=== PATIENT | female | born 2005 | race Two or more races ===

== ENCOUNTER 2024-08-23 22:32 | Inpatient (IN) | payer MEDICAID, SELFPAY ==
[2024-08-23 22:49] VITALS: BP 119/79; PULSE 144; RESP 16; TEMP 36.8
[2024-08-23 22:51] VITALS: BMI 33.7
[2024-08-23 23:01] VITALS: BP 120/77; PULSE 112
--- NOTE | 2024-08-23 23:07 | EKG_ITS ---
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
[2024-08-23 23:16] VITALS: PULSE 132; RESP 16; O2SAT 100
[2024-08-23 23:31] VITALS: PULSE 114; O2SAT 99
[2024-08-23 23:32] VITALS: BP 119/69; PULSE 111
[2024-08-23 23:44] LABS: Basophils % (Auto) 0 % (0-2.5); Eosinophils # (Auto) 0.1 Thou/mm3 (0.0-0.5); Eosinophils % (Auto) 1 % (0-10); Hemoglobin 8.5 g/dL (12.0-16.0); Immature Granulocytes % (Auto) 1 % (0-0); Immature Granulocytes Auto 0.05 Thou/mm3 (0.00-0.00); Lymphocytes # (Auto) 1.5 Thou/mm3 (1.0-5.0); Lymphocytes % (Auto) 15 % (10-50); Mean Corpuscular HGB Conc 31.5 g/dl (31.0-37.0); Mean Corpuscular Hemoglobin 22.5 pg (25.0-35.0); Mean Corpuscular Volume 71 fL (80-100); Monocytes # (Auto) 0.6 Thou/mm3 (0.0-0.8); Monocytes % (Auto) 6 % (0-12); Neutrophils # (Auto) 7.4 Thou/mm3 (1.8-7.7); Neutrophils % (Auto) 77 % (37-80); Nucleated Red Blood Cell # 0.06 Thou/mm3 (0.00-0.00); Nucleated Red Blood Cell % 1 /100 WBC (0); Platelet Count 401 Thou/mm3 (140-440); RDW Standard Deviation 43.9 fL (36.4-46.3); Red Blood Count 3.78 Miln/mm3 (4.00-5.20); White Blood Count 9.6 Thou/mm3 (4.5-11.0)
[2024-08-23] MEDS: RINGERS LACTATED 1000 ML 1,000 ML 100 ML IV (23:45)
[2024-08-23 23:46] VITALS: PULSE 98; O2SAT 100
[2024-08-23] MEDS: MISOPROSTOL 50 mCg TABLET PO (23:56)
[2024-08-24] VITALS (147 sets, daily range): BP systolic 91–155; BP diastolic 51–84; PULSE 74–143; RESP 14–27; TEMP 36.4–38.7; O2SAT 82–100; BMI 33.7
[2024-08-24 00:55] LABS: Amphetamine/Metham Scrn,Ur OB Negative (Negative); Benzoylecgonine Screen, Ur OB Negative (Negative); Opiate Screen,Urine OB Negative (Negative); THC Screen,Urine OB Negative (Negative)
[2024-08-24 02:07] LABS: Syphilis Nonreactive (Nonreactive)
[2024-08-24] MEDS: OXYTOCIN in NS 30 units 30 UNIT/500 ML BAG IV (05:42)
[2024-08-24] MEDS: RINGERS LACTATED 1000 ML 1,000 ML 100 ML IV ×4 (07:06→23:34)
--- NOTE | 2024-08-24 07:46 | PD.LDHP ---
Documentation for date of: 08/24/24 OB Labor/Induct. HPI History of Present Illness Chief complaint: induction : 1 Para: 0 Term pregnancies: 0 pregnancies: 0 Living children: 0 History of Abortions: Spontaneous and Elective: 0 History of Vaginal deliveries: 0 History of sections: No History of : No Date of last menstrual period: 05/12/24 EMBER: 08/22/24 Gestational Age (weeks): 40 Gestational Age (days): 1 Gestational age based on last menstrual period: 14 Indication for induction: post dates History of present illness: 18-year-old 1 para 0 admit to labor and delivery at 40 weeks 1 day for induction of labor. Last period November 16, 2023. Estimated due date August 22, 2024. First visit 18 weeks. Patient denies social habits. Denies surgery. Denies chronic illness. Patient had her first anatomy scan in April and showed normal anatomy and growth. And her dates and sono dates are accurate. Patient is B+, antibody screen negative, RPR nonreactive, rubella immune, hepatitis B negative, hepatitis C negative, HIV negative, GC and Chlamydia were negative. Patient had normal AFP and NIPT. Carrier screens negative. 1 hour GTT normal. GBS negative. History of Present Dating criteria: LMP confirmed by 1st trimester US Adequate Care: Yes (12 weeks in [place] then tx to [place] at 17wk) Ultrasounds: normal 1st trimester US and normal mid trimester US Obstetrical complications: none Medical complications: none Labs Labs: Negative: Hepatitis B, HIV, Chlamydia, Gonorrhea and Group Beta Strep Review of Systems Review of Systems Systems Reviewed: All systems reviewed, normal except as documented Past Medical History Surgical History SURGICAL: Negative Section Meds Home Medications and Allergies Home Medications ?Medication ?Instructions ?Recorded ?Confirmed ?Type vitamins-iron fumarate 65 1 tab PO QDAY 06/06/24 08/23/24 History mg iron-folic acid 1 mg tablet Allergies Allergy/AdvReac Type Severity Reaction Status Date / Time No Known Allergies Allergy Verified 08/24/24 00:04 OB Exam Physical Exam Vital signs: Temp Pulse Resp BP Pulse Ox 97.5 F 87 16 126/69 100 08/24/24 06:50 08/24/24 07:34 08/24/24 06:50 08/24/24 07:34 08/24/24 07:40 Narrative: Alert and oriented. Normal heart rate and rhythm. Lungs clear no wheezes. Gravid abdomen. Gynecoid pelvis. Estimated weight 7 and half pounds. Vaginal exam on admission was 60%, 3, -3. Vertex. Bag water intact. heart category 1 with accelerations and moderate variability occasional irregular Detailed Labor and Delivery Exam Dilation (cm): 3 Effacement (%): 60 Cervix position: mid station: -3 Consistency: soft Presentation: Vertex Cervical ripeness score: 6 Membranes: intact Baseline heart rate: 135 monitor accelerations: 15x15 monitor decelerations: None FDC variability: Moderate (11-25) Contraction frequency (min): irregular Contraction duration (sec): moderate Tachysystole: No Contraction intensity: Mild OB Results Labs 08/23/24 23:15 Labs: Short CBC 08/23/24 Range/Units 23:15 WBC 9.6 (4.5-11.0) Thou/mm3 Hgb 8.5 L (12.0-16.0) g/dL Hct 27.0 L (36.0-46.0) % Plt Count 401 (140-440) Thou/mm3 Impressions Impression: induction OB Assessment & Plan Assessment and Plan (1) Normal labor and delivery: Status: Acute Additional Plan Induction method: per misoprostol protocol (pitocin to follow) Plan: induction, anticipate NVD and consult MD gaytan
--- NOTE | 2024-08-24 07:51 | PD.LDPN ---
Documentation for date of: 08/24/24 OB Labor Progress Note Pain Control Pain control: epidural Pelvic Exam Dilation (cm): 3 Effacement (%): 60 station: -3 Contractions Monitor mode: External Contraction frequency: irregular Contraction intensity: Mild Status status: Category l Assessment and Plan Pitocin rate (mU/min): 3 Assessment: induction ongoing Plan OB labor note: continuous present management CNM Management MD Consulted (describe details below): Yes
--- NOTE | 2024-08-24 21:39 | PD.LDPN ---
Documentation for date of: 08/24/24 OB Labor Progress Note Pain Control Pain control: epidural Pelvic Exam Dilation (cm): 10 Effacement (%): 100 station: 0 Amniotic membrane status: Ruptured Contractions Monitor mode: External Contraction frequency: irregular Contraction intensity: Mild Status status: Category l Assessment and Plan Pitocin rate (mU/min): 10 Assessment: active labor Plan OB labor note: CNM Management MD Consulted (describe details below): Yes
[2024-08-24] MEDS: FAMOTIDINE INJ 10 MG/ML VIAL 2 ML 20 MG IV (21:45)
[2024-08-24] MEDS: ceFAZolin/D5W 2 GM IV 2 GM/100 ML BAG IV (21:46)
[2024-08-24] MEDS: METOCLOPRAMIDE INJ 5 MG/ML VIAL 2 ML 10 MG IVP (22:03)
--- NOTE | 2024-08-24 22:48 | PD.GYNPROC ---
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 Identity was confirmed by double identifiers and she was placed on the operating table. Spinal anesthesia was administered and she was positioned in the supine position. The abdomen and perineum were prepped in the usual sterile fashion and a Goodman catheter was placed to continuous drainage. Sterile drapes were applied. The incision site was tested for adequacy of anesthesia. A Pfannenstiel skin incision was made with a scalpel and carried to the subcutaneous fat up to the rectus fascia. The rectus fascia was incised on either side of the midline and the incisions were extended bilaterally. The fascia was gently dissected off the ventral surface of the rectus muscle both superiorly and inferiorly. The rectus bellies were gently in the midline and the peritoneum was identified and entered bluntly using the surgeon's finger. The peritoneal opening was now stretched to create an adequate opening for access to the uterus. Serafin O-ring retractor was placed for adequate visualization. The anterior surface of the uterus was palpated. The bladder reflection was identified and a Дмитрий Quiros low transverse uterine incision was made in the lower uterine segment taking care to avoid the bladder. Uterine entry was accomplished bluntly and the opening was stretched to create adequate room. The amniotic membranes were now ruptured and clear amniotic fluid was released. The fetus was noted to be in the vertex position. The head was gently elevated out of the maternal pelvis and the rest of the shoulders and body were delivered by gentle fundal pressure. Umbilical cord was doubly clamped, divided and the was handed over to the waiting team. Cord gas samples were obtained. The placenta was delivered by gentle traction on the umbilical cord. The interior of the uterus was now thoroughly cleaned of all blood and debris and membranes. The hysterotomy angles were grasped by a pair of Allis clamps and the hysterotomy was closed using 1 Monocryl suture in 2 layers. The first layer was used to approximate the muscle in a running locked fashion, the second layer was used to approximate the thickness of the myometrium and uterine serosa in an imbricated manner. Once the repair was completed the hysterotomy was inspected and noted to be adequately hemostatic. The hysterotomy was once again inspected and hemostasis was noted to be satisfactory. The Serafin retractor was now removed. The peritoneal edges were re approximated. The rectus muscles were re approximated. The rectus fascia was now repaired using 0 Vicryl suture in a running fashion. The subcutaneous layer was now copiously irrigated using warm normal saline. All bleeding points were cauterized using the Bovie. The subcutaneous fat was closed using 3-0 Vicryl. The skin was closed using 4-0 Monocryl in a subcuticular fashion. The skin was cleaned and a sterile dressing was applied. The patient was now undraped, the abdomen and back were thoroughly cleaned and she was not transferred to the recovery room in a stable and awake condition. The patient tolerated the entire procedure well. No complications were encountered. All instrument, sponge and lap counts were correct x2. Estimated blood loss (ml): 650 Complications: none Surgical staff Operation Date: 08/24/24 22:15 <No data on this case meets the specified criteria> Diagnosis Discharge Diagnosis (1) Failure of descent in labor, delivered, current hospitalization: Status: Acute (2) delivery delivered: Status: Acute Problem List Completed Was Problem List Reviewed/Reconciled?: Yes
--- NOTE | 2024-08-24 22:50 | PD.LDDELS ---
Data (Ellis) Data Hx Section: No : 1 Para: 0 Term: 0 : 0 : 0 Delivery Data (Ellis) Labor Data Stimulated/Augmented: Yes Induction: Yes Method: Oxytocin ROM Date: 08/24/24 ROM Time: 14:10 Rupture Type: SROM Amniotic Fluid: Clear Delivery Data Labor Onset Stage 1 Date: 08/24/24 Labor Onset Stage 1 Time: 06:30 Labor Onset Stage 2 Date: 08/24/24 Labor Onset Stage 2 Time: 19:09 Delivery Date: 08/24/24 Delivery Time: 22:30 Placenta Delivery Date: 08/24/24 Placenta Delivery Time: 22:31 Delivered by: Matheus Stevens Delivery nurse: Valentino Rosenberg Other staff at delivery: Nursery Nurse Other staff at delivery: Glenys Wolff Delivery Method Delivery: Delivery Type: Primary Anesthesia Type Primary Anesthesia: Epidural Secondary Anesthesia: Spinal Placenta Placenta Delivery: Manual Umbilical Cord Nuchal Cord: x1 Data (Ellis) [place] Data Infant Gender: Female Weight Grams: 3385 1 Minute Total: 9 5 Minute Total: 9
[2024-08-24] MEDS: ACETAMINOPHEN IVPB 1,000 MG/100 ML VIAL 250 MG IV (23:45)
[2024-08-24] MEDS: OXYTOCIN in NS 20 units 20 UNIT/1,000 ML BAG 125 UNIT IV (23:56)
--- NOTE | 2024-08-24 23:59 | XR_ITS ---
Examination: AP chest single view Technique one AP portable upright chest single view Exam date and time: August 25, 2024 0011 hrs. Indications: Fever today. Findings: Early left perihilar left basilar pneumonia Normal heart size The right lung is clear The osseous structures are intact Impression: Early left perihilar left basilar pneumonia
[2024-08-25] VITALS (21 sets, daily range): BP systolic 98–133; BP diastolic 55–84; PULSE 84–109; RESP 16–23; TEMP 36.6–37.6; O2SAT 96–100
--- NOTE | 2024-08-25 | EKG_ITS ---
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
[2024-08-25] MEDS: KETOROLAC INJ 30 MG/ML VIAL IVP ×3 (00:18→15:04)
[2024-08-25] MEDS: PIPER/TAZO INJ 3.375 GM in SODIUM CHLORIDE 0.9% (P) 50 ML IV ×2 (00:37→05:34)
[2024-08-25 01:07] LABS: Lactate (Lactic Acid) 2.6 mMol/L (0.4-2.0)
--- NOTE | 2024-08-25 03:19 | PC.NURSE ---
08/25/2024@ 0318 Spoke with pharmacy informatics specialistRasheeda england, who verified with pharmacist regarding x1 dose of motrin ordered by Dr. Stevens. Pharmacist verified Motrin order and recommended to administer toradol 6 hours from last administration of Motrin. primary RN will pass on to next shift.
[2024-08-25 04:05] LABS: Reflex Lactate? Y
[2024-08-25 05:19] LABS: Lactic Acid, 3 HR 1.4 mMol/L (0.4-2.0)
[2024-08-25] MEDS: ACETAMINOPHEN IVPB 1,000 MG/100 ML VIAL 250 MG IV ×2 (05:35→13:23)
[2024-08-25 05:47] LABS: Basophils % (Auto) 0 % (0-2.5); Eosinophils % (Auto) 0 % (0-10); Immature Granulocytes % (Auto) 1 % (0-0); Immature Granulocytes Auto 0.07 Thou/mm3 (0.00-0.00); Lymphocytes # (Auto) 1.2 Thou/mm3 (1.0-5.0); Lymphocytes % (Auto) 9 % (10-50); Mean Corpuscular HGB Conc 31.3 g/dl (31.0-37.0); Mean Corpuscular Hemoglobin 22.2 pg (25.0-35.0); Mean Corpuscular Volume 71 fL (80-100); Monocytes % (Auto) 7 % (0-12); Neutrophils # (Auto) 11.4 Thou/mm3 (1.8-7.7); Neutrophils % (Auto) 83 % (37-80); Nucleated Red Blood Cell # 0.02 Thou/mm3 (0.00-0.00); Nucleated Red Blood Cell % 0 /100 WBC (0); Platelet Count 281 Thou/mm3 (140-440); RDW Standard Deviation 44.4 fL (36.4-46.3); Red Blood Count 3.25 Miln/mm3 (4.00-5.20); White Blood Count 13.7 Thou/mm3 (4.5-11.0)
[2024-08-25] MEDS: OXYTOCIN in NS 20 units 20 UNIT/1,000 ML BAG 125 UNIT IV (05:50)
[2024-08-25 05:52] LABS: Hemoglobin 7.2 g/dL (12.0-16.0)
[2024-08-25] MEDS: DOCUSATE SOD 100 MG CAPSULE PO (08:32)
--- NOTE | 2024-08-25 10:18 | PC.NURSE ---
08/25/2024 @ [address] HIRSCH AT BEDSIDE, REPORT GIVEN TO PROVIDER, C-XRAY RESULTS AND LAB RESULTS REVIEWED. BLOOD CULTURES AND URINE CULTURES STILL PENDING, 1ST UNIT PRBC RUNNING 2ND UNITOF PRBC PENDING, PATIENT IS ON ZOSYN Q8H, URINE OUTPUT AT BEGINNING OF SHIFT 50CC, AND FUNDUS FIRM MIDLINE WITH SCANT BLEEDING. ORDERS RECEIVED FROM DR. HIRSCH TO DRAW CBC 4 HOURS AFTER 2ND UNIT OF PRBC IS FINISHED.
--- NOTE | 2024-08-25 10:37 | PD.LDPPPRG ---
Subjective Subjective Interval history: Patient is seen at the bedside doing well denies any fever, pain, vaginal bleeding, nausea, vomiting. Currently receiving her first unit of packed RBCs. Urine output has been on the lower side. Exam Vital Signs Temp Pulse Resp BP Pulse Ox O2 Del Method 98.4 F 100 18 105/69 99 Room Air 08/25/24 09:57 08/25/24 09:57 08/25/24 09:57 08/25/24 09:57 08/25/24 09:57 08/25/24 09:24 Constitutional Constitutional: no acute distress Routine HEENT Exam Head: Present normocephalic and atraumatic Eye: Present EOMI and PERRL ENT: Present mucous membranes moist Routine Neck Exam Neck: Present supple and trachea midline Routine Respiratory Exam Respiratory: Present chest non-tender, lungs clear, normal breath sounds and no resp distress Routine Cardiovascular Exam Cardiovascular: Present RRR Routine Abdominal Exam Abdominal: Present soft and normoactive bowel sounds Routine Extremities Exam Extremities: Present full ROM Routine Skin Exam Skin: Present intact, dry and warm Routine Neurological Exam Neurological: Present alert, oriented X3 and CN II-XII intact Routine Psychiatric Exam Psychiatric: Present normal affect and normal thought process Objective Labs 08/25/24 04:50 Labs: Laboratory Results - last 24 hr 08/23/24 08/25/24 08/25/24 23:15 00:27 04:50 WBC 13.7 H D RBC 3.25 L Hgb 7.2 L Hct 23.0 L MCV 71 L MCH 22.2 L MCHC 31.3 RDW Std Deviation 44.4 Plt Count 281 D Neut % (Auto) 83 H Lymph % (Auto) 9 L [place] % (Auto) 7 Eos % (Auto) 0 Baso % (Auto) 0 Neut # (Auto) 11.4 H Lymph # (Auto) 1.2 [place] # (Auto) 1.0 H Eos # (Auto) 0.0 Baso # (Auto) 0.0 Immature Gran # (Auto) 0.07 H Absolute Nucleated RBC 0.02 H Immature Gran % 1 H Nucleated RBC % 0 Lactic Acid 2.6 H 1.4 Blood Type B Positive Antibody Screen NEGATIVE Crossmatch See Detail Blood Bank Wristband ID Yes Assessment & Plan Problem List (1) Failure of descent in labor, delivered, current hospitalization: Status: Acute (2) delivery delivered: Status: Acute Assessment Comment Assessment comment: 18-year-old s/p , postop day 1 Hemoglobin 7.2, 1 unit packed RBC transfused Vital signs otherwise stable On Zosyn for bibasilar pneumonia Afebrile since antibiotic began Plan Comment Plan Comment: Continue postop care Anticipate discharge after 24 hours afebrile status, possibly tomorrow Time Spent With Patient Time: Total time spent is greater than 50% in coordination of care (as documented) at patient's floor/unit and/or counseling patient:
[2024-08-25] MEDS: PIPER/TAZO 3.375 GM 50 ML IV ×2 (14:49→22:04)
[2024-08-25 20:38] LABS: Basophils % (Auto) 0 % (0-2.5); Eosinophils # (Auto) 0.1 Thou/mm3 (0.0-0.5); Eosinophils % (Auto) 1 % (0-10); Hemoglobin 9.6 g/dL (12.0-16.0); Immature Granulocytes % (Auto) 1 % (0-0); Immature Granulocytes Auto 0.08 Thou/mm3 (0.00-0.00); Lymphocytes # (Auto) 1.3 Thou/mm3 (1.0-5.0); Lymphocytes % (Auto) 9 % (10-50); Mean Corpuscular HGB Conc 33.1 g/dl (31.0-37.0); Mean Corpuscular Hemoglobin 24.3 pg (25.0-35.0); Mean Corpuscular Volume 73 fL (80-100); Monocytes # (Auto) 0.8 Thou/mm3 (0.0-0.8); Monocytes % (Auto) 6 % (0-12); Neutrophils # (Auto) 12.2 Thou/mm3 (1.8-7.7); Neutrophils % (Auto) 84 % (37-80); Nucleated Red Blood Cell # 0.03 Thou/mm3 (0.00-0.00); Nucleated Red Blood Cell % 0 /100 WBC (0); Platelet Count 257 Thou/mm3 (140-440); RDW Standard Deviation 44.7 fL (36.4-46.3); Red Blood Count 3.95 Miln/mm3 (4.00-5.20); White Blood Count 14.5 Thou/mm3 (4.5-11.0)
[2024-08-26] MEDS: ACETAMINOPHEN 325 MG TABLET 650 MG PO (02:05)
[2024-08-26 04:00] VITALS: BP 95/67; PULSE 98; RESP 17; TEMP 36.3; O2SAT 98
[2024-08-26] MEDS: PIPER/TAZO 3.375 GM 50 ML IV (05:23)
[2024-08-26 08:00] VITALS: BP 115/84; PULSE 79; RESP 18; TEMP 36.8; O2SAT 99
[2024-08-26] MEDS: SIMETHICONE 80 MG CHEW PO (08:05)
[2024-08-26] MEDS: DOCUSATE SOD 100 MG CAPSULE PO (08:05)
[2024-08-26] MEDS: IBUPROFEN TAB 400 MG TABLET 800 MG PO ×2 (11:03→19:46)
[2024-08-26] MEDS: Milk Of Magnesia Susp 30 ML UDC PO (11:25)
[2024-08-26 12:20] VITALS: BP 110/72; PULSE 86; RESP 17; TEMP 36.6; O2SAT 99
--- NOTE | 2024-08-26 13:11 | PC.CC ---
TECHNICAL PROFESSIONAL, Amanda, met with patient [id number] to do initial assessment due to being late to care. TECHNICAL PROFESSIONAL introduced herself, role in the agency, reason for visit, and discussed limits of confidentiality. Patient appeared alert and oriented to self, time, place, and situation. Patient appears stated age. Patient made good eye contact. Patient?s attitude appeared pleasant and cooperative. Patient?s behavior and mood appears ordinary. No signs of delusions or hallucinations. This 18-year-old, , female presented to the hospital to deliver her daughter, Lia. Reinoso. Patient reported that she resides at home with her significant other Roger Abel and a brother and sister. She reports her family is part of her support system. She reports being independent with all her ADLs, no DME use. Patient reported that she is in the process of receiving WIC. Patient denies any history or current domestic violence or child welfare services involvement. Patient reported she was late to care as she recently moved here from [place]. The patient reported she received care at 4 weeks gestation in [place]. The patient stated she did not think about bringing her paper work from the doctor she was being followed by in [place]. Patient reports she has all needed supplies for the baby upon discharge. Patient reports she will be formula and . SW provided psychoeducation regarding baby blues and Post- Depression, as well as counseling groups [facility]. SW provided community resources: Warm Line and Crisis Line.
--- NOTE | 2024-08-26 16:20 | PD.LDPPPRG ---
Subjective Subjective Interval history: Patient has been feeling fine. Denies any fever , nausea vomiting.Has been having gas pain , cannot pass gas yet. Exam Vital Signs Temp Pulse Resp BP Pulse Ox O2 Del Method 97.9 F 86 17 110/72 99 Room Air 08/26/24 12:20 08/26/24 12:20 08/26/24 12:20 08/26/24 12:20 08/26/24 12:20 08/26/24 12:20 Constitutional Constitutional: no acute distress Routine HEENT Exam Head: Present normocephalic and atraumatic Eye: Present EOMI and PERRL ENT: Present mucous membranes moist Routine Neck Exam Neck: Present supple and trachea midline Routine Respiratory Exam Respiratory: Present chest non-tender, lungs clear, normal breath sounds and no resp distress Routine Cardiovascular Exam Cardiovascular: Present RRR Routine Abdominal Exam Abdominal: Present soft and normoactive bowel sounds Routine Extremities Exam Extremities: Present full ROM Routine Skin Exam Skin: Present intact, dry and warm Routine Neurological Exam Neurological: Present alert, oriented X3 and CN II-XII intact Routine Psychiatric Exam Psychiatric: Present normal affect and normal thought process Objective Labs 08/25/24 20:26 Labs: Laboratory Results - last 24 hr 08/25/24 20:26 WBC 14.5 H RBC 3.95 L Hgb 9.6 L D Hct 29.0 L MCV 73 L MCH 24.3 L MCHC 33.1 RDW Std Deviation 44.7 Plt Count 257 Neut % (Auto) 84 H Lymph % (Auto) 9 L [place] % (Auto) 6 Eos % (Auto) 1 Baso % (Auto) 0 Neut # (Auto) 12.2 H Lymph # (Auto) 1.3 [place] # (Auto) 0.8 Eos # (Auto) 0.1 Baso # (Auto) 0.0 Immature Gran # (Auto) 0.08 H Absolute Nucleated RBC 0.03 H Immature Gran % 1 H Nucleated RBC % 0 Assessment & Plan Problem List (1) Failure of descent in labor, delivered, current hospitalization: Status: Acute (2) delivery delivered: Status: Acute Assessment Comment Assessment comment: 18 y/o s/p , POD#2 Late delivery , did not complete 48 hours yet VSS S/P 1 unit PRBC, Hb appropriate rise met PO milestones Plan Comment Plan Comment: continue PO care Bowel regimen to continue Anticipate discharge tomorrow Time Spent With Patient Time: Total time spent is greater than 50% in coordination of care (as documented) at patient's floor/unit and/or counseling patient:
[2024-08-26 19:15] VITALS: BP 112/71; PULSE 90; RESP 16; TEMP 36.7; O2SAT 98
[2024-08-27 03:30] VITALS: BP 114/75; PULSE 77; RESP 17; TEMP 36.5; O2SAT 99
[2024-08-27] MEDS: IBUPROFEN TAB 400 MG TABLET 800 MG PO (03:39)
[2024-08-27 08:35] VITALS: BP 118/81; PULSE 85; RESP 15; TEMP 36.6; O2SAT 98
--- NOTE | 2024-08-27 08:58 | PD.LDPPPRG ---
Subjective Subjective Interval history: Delivery type: Patient doing well this morning. No acute complaints. Ambulating, tolerating p.o. and voiding without difficulty. HTN/Pre-Eclampsia screen: No chest pain, shortness of breath, headache, visual changes, epigastric or right upper quadrant pain. Breast-feeding, lochia diminishing. Bowel: Flatus+/ BM+ Exam Vital Signs Temp Pulse Resp BP Pulse Ox O2 Del Method 97.7 F 77 17 114/75 99 Room Air 08/27/24 03:30 08/27/24 03:30 08/27/24 03:30 08/27/24 03:30 08/27/24 03:30 08/27/24 03:30 Constitutional Constitutional: no acute distress Routine HEENT Exam Head: Present normocephalic and atraumatic Eye: Present EOMI and PERRL ENT: Present mucous membranes moist Routine Neck Exam Neck: Present supple and trachea midline Routine Respiratory Exam Respiratory: Present chest non-tender, lungs clear, normal breath sounds and no resp distress Routine Cardiovascular Exam Cardiovascular: Present RRR Routine Abdominal Exam Abdominal: Present soft and normoactive bowel sounds Routine Extremities Exam Extremities: Present full ROM Routine Skin Exam Skin: Present intact, dry and warm Routine Neurological Exam Neurological: Present alert, oriented X3 and CN II-XII intact Routine Psychiatric Exam Psychiatric: Present normal affect and normal thought process Objective Labs 08/25/24 20:26 Assessment & Plan Problem List (1) Failure of descent in labor, delivered, current hospitalization: Status: Acute (2) delivery delivered: Status: Acute Assessment and plan: PPD/POD#2 1. Continue routine care 2. Transition to PO meds. 3. Encourage to ambulate/ breast-feed 4. Anticipate discharge home today. Time Spent With Patient Time: Total time spent is greater than 50% in coordination of care (as documented) at patient's floor/unit and/or counseling patient:
--- NOTE | 2024-08-27 08:59 | ESDS_ITS ---
DS: Providers Provider Date of admission: 08/23/24 22:32 Primary care physician: Physician No Primary/Family Admitting Provider: Gerardo Ferraro MD Attending Provider on Admission: Daniel Lincoln MD Consults: 08/24/24 23:34 Referral Routine Comment: Attending Provider on DC: Matheus Stevens MD Discharging Provider: Matheus Stevens MD DS: Diagnosis Discharge Diagnosis (1) delivery delivered: Status: Acute (2) Failure of descent in labor, delivered, current hospitalization: Status: Acute (3) Normal labor and delivery: Status: Acute Problem List Completed Was Problem List Reviewed/Reconciled?: Yes Summary/Hosp Course Brief History: 18-year-old 1 para 0 admit to labor and delivery at 40 weeks 1 day for induction of labor. Last period November 16, 2023. Estimated due date August 22, 2024. First visit 18 weeks. Patient denies social habits. Denies surgery. Denies chronic illness. Patient had her first anatomy scan in April and showed normal anatomy and growth. And her dates and sono dates are accurate. Patient is B+, antibody screen negative, RPR nonreactive, rubella immune, hepatitis B negative, hepatitis C negative, HIV negative, GC and Chlamydia were negative. Patient had normal AFP and NIPT. Carrier screens negative. 1 hour GTT normal. GBS negative. Peripartum Data Procedures: Procedures Operation Date: 08/24/24 22:15 Actual Procedure Side Surgeon p in OB Matheus Stevens MD Time Spent with Patient Time attestation: Total time spent providing and/or coordinating discharge services: Exam Vital Signs Temp Pulse Resp BP Pulse Ox O2 Del Method 97.7 F 77 17 114/75 99 Room Air 08/27/24 03:30 08/27/24 03:30 08/27/24 03:30 08/27/24 03:30 08/27/24 03:30 08/27/24 03:30 Discharge Plan Plan Patient Disposition: HOME (Self Care) Patient condition on transfer: Stable Prescriptions/Referrals Prescriptions/Med Rec: New acetaminophen-codeine 300-15 mg tablet 1 tab PO Q12H PRN (Reason: pain) Qty: 14 0RF ibuprofen 800 mg tablet 800 mg PO Q8H PRN (Reason: pain) Qty: 30 0RF hydrocodone-acetaminophen 5-325 mg Tablet 1 tab PO Q6HR MDD 4 PRN (Reason: Patient rated pain 9 to 10) 5 Days Qty: 20 0RF docusate sodium 100 mg Capsule 100 mg PO QDAY 30 Days Qty: 30 0RF ibuprofen 400 mg Tablet 800 mg PO Q8HR PRN (Reason: Pain Scale 4-6 (Moderate) 10 Days Qty: 30 0RF Continued vit-iron fum-folic ac 65 mg iron- 1 mg Tablet 1 tab PO QDAY Referrals: Matheus Stevens MD [Physician] - No Primary/Family,Physician [Primary Care Provider] - Patient/Caregiver Discharge Instructions Meds to Beds: Yes Discharge Activity: activity as tolerated Education Materials: Understanding Blues, Breast Care After , C Section Dc Print Language: Guyanese Activity Restrictions/Additional Instructions: Follow up with OB in 1 week for incision care Stand Alone Forms: Елена Archer Info., Patient Portal Info Letter, DC from Surgery Discharge Order Discharge Orders: Discharge (Routine); Ordered 08/27/24 Ordered By: Matheus Stevens Planned Discharge Date 08/27/24
== END 2024-08-27 11:50 | disposition home or self-care (01) | DRG 540 ==
LOC: S4SX 08-24 22:50 → S4NX 08-24 23:30
PROVIDERS: Advanced Practice Midwife; Obstetrics & Gynecology; Admitting Provider Obstetrics & Gynecology; Visit Provider Student in an Organized Health Care Education/Training Program
PROC: 10D00Z1 Extraction of Products of Conception, Low, Open Approach (ICD-10-PCS; CPT 59514; principal; 2024-08-24 22:00)
DX: O48.0 Post-term pregnancy (principal); Z37.0 Single live birth; Z3A.40 40 weeks gestation of pregnancy; O69.81X0 Labor and delivery complicated by cord around neck, without compression, not applicable or unspecified; J18.9 Pneumonia, unspecified organism; O99.52 Diseases of the respiratory system complicating childbirth; O62.1 Secondary uterine inertia
CPT/HCPCS: 36415; 71045; 80307; 83605; 85025; 86780; 86850; 86900; 86901; 86923; 87040; 87086; 93005; 94762; A4649; J0131; J0689; J1885; J2274; J2543; J2590; J2765; J2795; J3010; J3490; J7030; J7050; J7120; P9016; A9270; J0690; J2270

== ENCOUNTER 2024-11-01 23:06 | Emergency (ER) | payer MEDICAID, SELFPAY ==
[2024-11-01 23:19] VITALS: BP 107/70; PULSE 67; RESP 19; TEMP 36.2; O2SAT 100; BMI 27.2
[2024-11-01 23:54] LABS: Collection Type, Urine Voided
[2024-11-02] MEDS: ONDANSETRON ODT 4 MG TABRAP PO (00:01)
--- NOTE | 2024-11-02 00:04 | PD.EDRME ---
Rapid Medical Screening Exam RME Arrival date/time: 11/01/24 23:06 18 yo f present to ED for c/o of RLQ for 3 hours. I have greeted and performed a focused initial assessment of this patient. A comprehensive ED assessment and evaluation of the patient, analysis of all test results, and completion of the medical decision making process will be conducted by additional ED providers. Chief Complaint: Abdominal Pain Time Seen by Provider: 11/01/24 23:23 Vital signs: Vital Signs Temperature 97.2 F 11/01/24 23:19 Pulse Rate 67 11/01/24 23:19 Respiratory Rate 19 11/01/24 23:19 Blood Pressure 107/70 11/01/24 23:19 Pulse Oximetry (%) 100 11/01/24 23:19 Oxygen Delivery Method Room Air 11/01/24 23:19
[2024-11-02 00:08] LABS: Basophils % (Auto) 0 % (0-2.5); Eosinophils # (Auto) 0.2 Thou/mm3 (0.0-0.5); Eosinophils % (Auto) 1 % (0-10); Hematocrit 36.3 % (36.0-46.0); Hemoglobin 11.7 g/dL (12.0-16.0); Immature Granulocytes % (Auto) 0 % (0-0); Immature Granulocytes Auto 0.03 Thou/mm3 (0.00-0.00); Lymphocytes # (Auto) 2.3 Thou/mm3 (1.0-5.0); Lymphocytes % (Auto) 17 % (10-50); Mean Corpuscular HGB Conc 32.2 g/dl (31.0-37.0); Mean Corpuscular Hemoglobin 25.1 pg (25.0-35.0); Mean Corpuscular Volume 78 fL (80-100); Monocytes # (Auto) 0.6 Thou/mm3 (0.0-0.8); Monocytes % (Auto) 5 % (0-12); Neutrophils # (Auto) 10.5 Thou/mm3 (1.8-7.7); Neutrophils % (Auto) 77 % (37-80); Nucleated Red Blood Cell % 0 /100 WBC (0); Platelet Count 285 Thou/mm3 (140-440); RDW Standard Deviation 62.2 fL (36.4-46.3); Red Blood Count 4.66 Miln/mm3 (4.00-5.20); White Blood Count 13.6 Thou/mm3 (4.5-11.0)
[2024-11-02 00:13] LABS: Bacteria,Urine Rare; Bilirubin,Urine Negative (Negative); Blood,Urine Negative (Negative); Clarity,Urine Clear (Clear/Hazy); Color,Urine Yellow (Lt Yel-Yel); Glucose, Urine Negative (Negative); Ketones,Urine Negative (Negative); Leukocyte Esterase,Urine Positive (Negative); Nitrite,Urine Negative (Negative); PH,Urine 6.5 (5.0-7.0); Protein,Urine Trace (Neg - Trace); RBC,Urine 17 /hpf (0-3); Specific Gravity,Urine 1.031 (1.001-1.035); Squamous Epithelial Cell,Urine 2 /hpf (0-5); WBC,Urine 8 /hpf (0-5)
[2024-11-02 00:22] LABS: Alanine Aminotransferase 57 U/L (10-49); Albumin, Serum 4.6 gm/dL (3.5-5.0); Albumin/Globulin Ratio 1.5 (1.2-2.2); Alkaline Phosphatase 109 U/L (46-116); Anion Gap 9 (7-16); Aspartate Amino Transferase 70 U/L (0-34); BUN/Creatinine Ratio 18 Ratio (12-20); Bilirubin,Total 0.3 mg/dL (0.3-1.2); Blood Urea Nitrogen 11 mg/dL (9-23); Calcium 9.6 mg/dL (8.3-10.6); Calcium (Corrected) 9.6 mg/dL (8.5-10.1); Carbon Dioxide 26.5 mMol/L (20.0-31.0); Chloride 109 mMol/L (98-107); Creatinine (Component) 0.6 mg/dL (0.6-1.3); Globulin 3.1 gm/dL (2.3-3.5); Glucose 107 mg/dL (74-106); HCG,Qualitative Serum Negative; Lipase 55 U/L (12-53); Osmolality,Calculated 286 (275-295); Potassium 3.6 mMol/L (3.4-5.1); Sodium 144 mMol/L (136-145); Total Protein 7.7 gm/dL (5.7-8.2); eGFR > 60 See Note
--- NOTE | 2024-11-02 01:25 | XR_ITS ---
Examination: Abdomen sonogram, Limited Date and time of exam: November 02, 2024 0153 hours INDICATIONS: Right upper abdominal pain today, elevated lipase on laboratory examination November 01, 2024 Technique: Real-time pickard scale transabdominal sonographic images of the upper abdomen obtained. Findings: Multiple gallstones Gallbladder wall 0.2 cm no edema Common bile duct 0.5 cm Pancreatic head 2.8 cm Liver 16.4 cm no focal liver lesions Normal hepatopedal portal venous flow Patent IVC IMPRESSION: Cholelithiasis, negative for cholecystitis If pancreatitis is a clinical consideration, consider MRCP follow-up
--- NOTE | 2024-11-02 01:30 | PD.EDABDPN ---
ED Abdominal Pain RME/HPI General Chief Complaint: Abdominal Pain Stated complaint: Vomiting, abdominal pain today Time seen by provider: 11/01/24 23:23 Arrival date/time: 11/01/24 23:06 Limitations: no limitations RME / HPI RME / HPI narrative: 11/01/24 23:06 18 yo f present to ED for c/o of RLQ for 3 hours. I have greeted and performed a focused initial assessment of this patient. A comprehensive ED assessment and evaluation of the patient, analysis of all test results, and completion of the medical decision making process will be conducted by additional ED providers. Dr. Sanchez's Main ED Evaluation: 18yo female presents to the ED for a chief complaint of RUQ pain x 2100. Patient describes the pain as colicky in nature, reporting her pain is contant and radiates to her epigastric area and right back. She reports having one emetic episode with food-like contents. She denies any dysuria, diarrhea, constipation or any other associated symptoms. PSH includes . She is . No known allergies. Related Data Home Medications ?Medication ?Instructions ?Recorded ?Confirmed vitamins-iron fumarate 65 1 tab PO QDAY 06/06/24 08/23/24 mg iron-folic acid 1 mg tablet Previous Rx's ?Medication ?Instructions ?Recorded acetaminophen 300 mg-codeine 15 mg 1 tab PO Q12H PRN pain #14 tabs 08/26/24 tablet ibuprofen 800 mg tablet 800 mg PO Q8H PRN pain #30 tabs 08/26/24 Allergies Allergy/AdvReac Type Severity Reaction Status Date / Time No Known Allergies Allergy Verified 08/24/24 00:04 Review of Systems Review of Systems Systems Reviewed: All systems reviewed, normal except as documented ED Exam General Limitations: Present no limitations General appearance: Present alert and in no apparent distress Head Head exam: Present atraumatic Eye Eye exam: Present normal appearance, PERRL and EOMI ENT ENT exam: Present normal exam, normal oropharynx and mucous membranes moist Neck Neck exam: Present normal inspection, full ROM and trachea midline Chest Chest inspection: Present normal inspection and symmetric chest wall rise Respiratory Respiratory exam: Present normal lung sounds bilaterally Cardiovascular Cardiovascular exam: Present regular rate, normal rhythm and normal heart sounds Abdominal Exam Abdominal exam: Present soft and normal bowel sounds; Absent rebound or Hensley's sign Abdominal tenderness: Present RUQ and epigastrium Extremities Exam Extremities exam: Present normal inspection and full ROM Back Exam Back exam: Present normal inspection and full ROM; Absent CVA tenderness (R) or CVA tenderness (L) Neurological Exam Neurological exam: Present alert, oriented X3 and CN II-XII intact Psychiatric Psychiatric exam: Present normal affect and normal mood Skin Skin exam: Present warm, dry, intact and normal color Course Quality Measures none Orders Category Date Time Status Bedside Influenza A&B Antigen Test NOW Care 11/01/24 23:[address] Screening NOW Care 11/02/24 00:30 Completed US gall bladder Stat Exams 11/02/24 01:25 Taken Blood Culture (Lab) Stat Lab 11/02/24 01:38 Received CBC Stat Lab 11/01/24 23:43 Completed CMP [Comprehensive Metabolic Panel] Stat Lab 11/01/24 23:43 Completed HCG,Qualitative Serum Stat Lab 11/01/24 23:43 Completed Lactic Acid [Lactate (Lactic Acid)] Stat Lab 11/02/24 01:38 Completed Lactic Acid, 3 HR Stat Lab 11/02/24 04:48 Ordered Lipase Stat Lab 11/01/24 23:43 Completed UA [Urinalysis] Stat Lab 11/01/24 23:45 Completed Acetaminophen Tab [Tylenol Tab] Med 11/02/24 02:01 Discontinued 650 mg PO X1 ONE Ondansetron Odt [Zofran Odt] Med 11/01/24 23:25 Discontinued 4 mg PO X1 ONE Sodium Chloride 0.9% 1000 ml [Ns] 1,000 ml Med 11/02/24 00:31 Discontinued IV 999 mls/hr Vital Signs Vital signs: Vital Signs Temperature 97.2 F 11/01/24 23:19 Pulse Rate 67 11/01/24 23:19 Respiratory Rate 19 11/01/24 23:19 Blood Pressure 107/70 11/01/24 23:19 Pulse Oximetry (%) 100 11/01/24 23:19 Oxygen Delivery Method Room Air 11/01/24 23:19 Pulse ox is 100% on room air, which is normal according to my interpretation. Abdominal Pain MDM MDM Narrative MDM Narrative:: 18-year-old female status post in July coming in with 1 day history of right upper quadrant and epigastric pain. While in the emergency department the patient has no rebound but did have some pain. She otherwise is afebrile and has no jaundice. Initial labs show that she has a white count of 13 with a lipase slightly elevated at 55 otherwise no obstructive picture noted on her labs. Ultrasound is obtained that does not show any evidence of acute cholecystitis but the patient does have gallstones. Reevaluation patient is pain-free and otherwise blood pressure remained stable at 113/70 with a pulse of 81. No rebound or Hensley sign. Patient is aware that she must not eat any greasy or fatty foods and will drink clear liquids for the next 48 hours and advance diet as necessary. Patient instructed to return to worsening symptoms, or any other concerns. Patient data External records reviewed:: [facility] previous records (Per chart review, patient has no relevant previous ED visits.) Clinical information provided by:: patient Social determinants that could affect healthcare access:: none Patient has the following chronic illnesses:: none How is presenting disease/condition affected by chronic disease/condition?: no chronic disease Evaluation data The following diagnostics were reviewed and interpreted by me:: lab results and radiology exam(s) Lab and/or radiology exams considered but not ordered:: none Interpretation Summary: WBC count is elevated at 13.6, Lactic Acid is 2.2, AST and ALT are slightly elevated, Lipase is 55, HCG is negative, UA is unremarkable, according to my interpretation. Telerad Preliminary Report Draft Patient: KAYLEE MUNOZ. Record#: [id number] Birthdate: 2005 Age/Sex: 18 / F Location: [facility] Attending Dr: Ordering Physician: Date of Service: Procedure(s): Accession Number(s): cc: ~ Gallbladder ultrasound. November 02, 2024 at 0153 hours Clinical history: Right upper quadrant pain, elevated lipase, possible gallstones. Findings: The liver is mildly enlarged, measuring 16.4 cm and is normal in echogenicity without mass or ductal dilatation. The portal vein demonstrates hepatopetal flow. The hepatic veins are patent. Multiple calculi are noted within the gallbladder, without evidence of gallbladder wall thickening or pericholecystic fluid. The common duct is normal in caliber at 5.3 mm. The evaluation of the pancreas is limited due to bowel gas. The abdominal aorta and inferior vena cava are unremarkable to the extent visualized. Impression: Cholelithiasis without sonographic evidence of acute cholecystitis or biliary obstruction. Mild hepatomegaly. Report Electronically Signed By: Ron Head 11/02/2024 2:46:05 AM [EST] Medications / Prescriptions Medications or Prescriptions considered but not ordered:: none Medication administrations:: Medication Administration History Discontinued Medications Acetaminophen (Acetaminophen 325 Mg Tablet) 650 mg PO X1 ONE Stop: 11/02/24 02:02 Last Admin: 11/02/24 02:28 Dose: 650 mg Documented By: JUAN Sodium Chloride (Ns) 1,000 mls @ 999 mls/hr IV .Q1H1M ONE Stop: 11/02/24 01:31 Last Infusion: 11/02/24 02:50 Dose: Infused Documented By: Admin: 11/02/24 01:42 Dose: 999 mls/hr Documented By: JUAN Ondansetron HCl (Ondansetron Odt 4 Mg Tabrap) 4 mg PO X1 ONE; Protocol Stop: 11/01/24 23:26 Last Admin: 11/02/24 00:01 Dose: 4 mg Documented By: MARINO see above Consultations Consultation(s) initiated? (list below): No Diagnosis Differential diagnosis abdominal pain: pancreatitis and other (gallstones, gallstone pancreatitis, other CBD or liver etiology, right lower lobe pneumonia) Most likely diagnosis given after review of the tests above:: see below Admission Indicated Admission indicated?: not indicated Admission Request Was there a request for admission?: No Disposition Plan Disposition Plan: Discharge Discharge Attestation Discharge Attestation: The patient and all family members were given an opportunity to ask questions and understood the discharge instructions. Discharge instructions specifically effects, indications for sooner follow up or return to the emergency department, and the expected course of current diagnosis. Patient condition: Stable Discharge Plan Plan Patient Disposition: HOME (Self Care) Patient condition on transfer: Stable Prescriptions/Referrals Prescriptions/Med Rec: No Action acetaminophen-codeine 300-15 mg tablet 1 tab PO Q12H PRN (Reason: pain) Qty: 14 0RF ibuprofen 800 mg tablet 800 mg PO Q8H PRN (Reason: pain) Qty: 30 0RF vit-iron fum-folic ac 65 mg iron- 1 mg Tablet 1 tab PO QDAY Referrals: Micheal Delgado MD [Primary Care Provider] - 11/04/24 (For referral to general surgery) Scooter Sunshine MD [Physician] - In 1 week (Please call to get an appointment in the next 1 to 2 weeks.) Problem List Clinical Impression: Gallstones Patient/Caregiver Discharge Instructions Diet Instructions: Please avoid greasy or fatty foods or processed foods. Education Materials: Treating Gallstones Additional Instructions: Today you have gallstones on your ultrasound. You will need to follow-up as an outpatient to get a referral to surgery. I will give you the phone number of the general surgery so you can call to make an appointment in the next 1 to 2 weeks. Please follow-up with your primary care in the next 48 hours for recheck. Return to emergency department sooner than your appointment if you are having increasing pain, any fever, vomiting you cannot tolerate liquids, or any other concerns. Print Language: Icelandic Stand Alone Forms: Елена Award Info., Patient Portal Info Letter
[2024-11-02] MEDS: SODIUM CHLORIDE 0.9% 1000 ML 1,000 ML 999 ML IV (01:42)
[2024-11-02 01:49] LABS: Lactate (Lactic Acid) 2.2 mMol/L (0.4-2.0)
[2024-11-02 01:52] VITALS: BP 112/68; PULSE 66; RESP 16; TEMP 36.7; O2SAT 99
[2024-11-02] MEDS: ACETAMINOPHEN 325 MG TABLET 650 MG PO (02:28)
--- NOTE | 2024-11-02 02:47 | PRELIM_ITS ---
Gallbladder ultrasound. November 02, 2024 at 0153 hours Clinical history: Right upper quadrant pain, elevated lipase, possible gallstones. Findings: The liver is mildly enlarged, measuring 16.4 cm and is normal in echogenicity without mass or ductal dilatation. The portal vein demonstrates hepatopetal flow. The hepatic veins are patent. Multiple calculi are noted within the gallbladder, without evidence of gallbladder wall thickening or pericholecystic fluid. The common duct is normal in caliber at 5.3 mm. The evaluation of the pancreas is limited due to bowel gas. The abdominal aorta and inferior vena cava are unremarkable to the extent visualized. Impression: Cholelithiasis without sonographic evidence of acute cholecystitis or biliary obstruction. Mild hepatomegaly. Report Electronically Signed By: Ron Head 11/02/2024 2:46:05 AM [EST]
[2024-11-02 04:33] VITALS: BP 113/70; PULSE 81; RESP 16; TEMP 36.7; O2SAT 99
[2024-11-02 04:48] LABS: Reflex Lactate? Y
[2024-11-02 05:42] VITALS: BP 116/85; PULSE 75; RESP 16; O2SAT 99
== END 2024-11-02 05:43 | disposition home or self-care (01) ==
PROVIDERS: Physician Assistant; Emergency Provider Emergency Medicine; PCP Family Medicine
DX: K80.20 Calculus of gallbladder without cholecystitis without obstruction (principal)
CPT/HCPCS: 36415; 76705; 80053; 81001; 83605; 83690; 84703; 85025; 87040; 87400; 87651; 96360; 99284; J7030; Q0162; A9270

== ENCOUNTER 2025-02-24 05:50 | Day surgery (SDC) | payer MEDICAID, SELFPAY ==
[2025-02-23 07:39] VITALS: BMI 27.9
[2025-02-23 09:14] LABS: Basophils % (Auto) 0 % (0-2.5); Eosinophils # (Auto) 0.1 Thou/mm3 (0.0-0.5); Eosinophils % (Auto) 1 % (0-10); Hematocrit 36.4 % (36.0-46.0); Hemoglobin 12.3 g/dL (12.0-16.0); Immature Granulocytes % (Auto) 0 % (0-0); Immature Granulocytes Auto 0.01 Thou/mm3 (0.00-0.00); Lymphocytes # (Auto) 1.9 Thou/mm3 (1.0-4.8); Lymphocytes % (Auto) 25 % (10-50); Mean Corpuscular HGB Conc 33.8 g/dl (31.0-37.0); Mean Corpuscular Hemoglobin 28.7 pg (25.0-35.0); Mean Corpuscular Volume 85 fL (80-100); Monocytes # (Auto) 0.3 Thou/mm3 (0.0-0.8); Monocytes % (Auto) 5 % (0-12); Neutrophils # (Auto) 5.1 Thou/mm3 (1.8-7.7); Neutrophils % (Auto) 69 % (37-80); Nucleated Red Blood Cell % 0 /100 WBC (0); Platelet Count 268 Thou/mm3 (140-440); RDW Standard Deviation 43.1 fL (36.4-46.3); Red Blood Count 4.29 Miln/mm3 (4.00-5.20); White Blood Count 7.4 Thou/mm3 (4.5-11.0)
[2025-02-23 09:15] LABS: Alanine Aminotransferase 50 U/L (10-49); Albumin, Serum 4.6 gm/dL (3.5-5.0); Albumin/Globulin Ratio 1.8 (1.2-2.2); Alkaline Phosphatase 92 U/L (46-116); Anion Gap 12 (7-16); Aspartate Amino Transferase 19 U/L (0-34); BUN/Creatinine Ratio 17 Ratio (12-20); Bilirubin,Total 0.4 mg/dL (0.3-1.2); Blood Urea Nitrogen 10 mg/dL (9-23); Calcium 8.9 mg/dL (8.3-10.6); Calcium (Corrected) 8.9 mg/dL (8.5-10.1); Carbon Dioxide 22.2 mMol/L (20.0-31.0); Chloride 110 mMol/L (98-107); Creatinine (Component) 0.6 mg/dL (0.6-1.3); Globulin 2.5 gm/dL (2.3-3.5); Glucose 103 mg/dL (74-106); Osmolality,Calculated 285 (275-295); Potassium 3.5 mMol/L (3.4-5.1); Sodium 144 mMol/L (136-145); Total Protein 7.1 gm/dL (5.7-8.2); eGFR > 60 See Note
[2025-02-23 09:17] LABS: HCG,Qualitative Serum Negative
[2025-02-23 09:44] LABS: Partial Thromboplastin Time 27.4 Seconds (22.0-36.0); Prothrombin Time 11.4 Seconds (9.0-12.2)
[2025-02-24] VITALS (8 sets, daily range): BP systolic 95–116; BP diastolic 36–74; PULSE 65–114; RESP 14–20; TEMP 36.3–36.4; O2SAT 97–100; BMI 27.6
--- NOTE | 2025-02-24 07:36 | SUR.PREOP ---
Patient expressed gratitude for prayer before their procedure.
--- NOTE | 2025-02-24 09:14 | SUR.PHASEI ---
0914: Pt. AAOx4, pt. hypotensive, made aware, no new orders given, remaining vitals stable, breathing unlabored, no complaint of pain or nausea, x4 dressing to ABD CDI, no active bleed noted, report received from MD Zazueta and Antonio CASTRO.
--- NOTE | 2025-02-24 09:19 | PD.SUROPNT ---
Date of Procedure 02/24/25 Pre Op Diagnosis Symptomatic cholelithiasis with recurrent biliary colic Post Op Diagnosis Same with hydrops of the gallbladder due to obstruction of the cystic duct Procedure Laparoscopic cholecystectomy Findings Patient was found to have a distended gallbladder with clear bile suggesting cystic duct obstruction few weeks ago Procedure Description After endotracheal anesthesia was given the patient was placed in supine position and the abdomen was prepped with chloroprep solution and draped in a sterile manner. After time out was performed I injected a few cc of of half percent Marcaine with epinephrine below the umbilicus and I made an incision for about 3 cm in length. The fascia was cleaned and Veress needle was inserted to create a pneumoperitoneum up to 15 mmHg. Then introduced a 12 mm trocar and a 10 mm camera through the fascia and I inspected the intra-abdominal organs as well as the gallbladder and the liver. Another 5 mm trocar was inserted in the epigastric region under direct vision after injecting some local anesthesia. At this time the patient was kept in reverse Trendelenburg position with the left lateral tilt. The third 5 mm trocar was inserted over the mid axillary line under direct vision and a Bg and Gehyun grasper was used to hold the fundus of the gallbladder. The retraction was carried out by the entry level assistant manager moving the fundus of the gallbladder towards the right shoulder of the patient to create enough traction. The gallbladder was distended and leaked bile which is colorless obviously due to hydrops. I placed a another 5 mm trocar in the midaxillary line just lateral to the rectus muscle under direct vision. I used a fenestrated grasper to retract the neck of the gallbladder laterally towards the patient's right hip. The Calot's triangle was exposed and I achieved the critical view of safety as follows: I dissected out the fatty tissue from the hepatocystic triangle and cleared this area. I also dissected inferior and posterior to the gallbladder to identify the cystic duct and the gallbladder wall. Then superiorly I dissected along the cystic plate up to lower one third third of the gallbladder to lift the gallbladder from the liver. At this time I confirmed that only 2 structures entering the gallbladder were cystic artery and the cystic duct. The common duct was seen distally but no dissection was carried out around the duct. I did not see any need for operative cholangiogram in this patient. The cystic duct was clipped doubly and then divided and cystic artery was similarly dealt with. Then the gallbladder was removed from the liver bed using Harmonic gilbert to control the small blood vessels as the dissection proceeded. Then the gallbladder was from the liver bed completely and delivered through the umbilical port using an Endopouch. The liver bed was coagulated with cautery to obtain satisfactory hemostasis. The trocars were pulled out from the abdominal cavity and the fascia at the umbilical incision was closed with interrupted 0 Ethibond. Subcutaneous tissues was closed with 3-0 chromic and injected a few cc of half percent Marcaine with epinephrine and the skin was closed with interrupted 4-0 Monocryl subcuticular stitches at all the trocar sites. Dressing was applied with 2 x 2 and Tegaderm. Patient tolerated the procedure well and returned to recovery room in stable condition. Anesthesia GETA Pathology / specimen Other (Gallbladder and the stone) Estimated Blood Loss 30 Surgeon Delvin Estrada MD Surgical Staff Operation Date: 02/24/25 08:00 Case Staff Anesthesiologist: Ron Zazueta RNbriefcase sewer: Kasey Tripp
[2025-02-24] MEDS: fentaNYL CIT INJ 50 mCg/ML AMP 2ML IVP (09:41)
--- NOTE | 2025-02-24 10:18 | SUR.PHASEII ---
1018: Pt. AAOx4, vitals stable, breathing unlabored, no complaint of pain or nausea, x4 dressing sites to ABD CDI, no active bleed noted, pt. tolerated sips of soda well, pt. ambulated to wheelchair with steady gait and no assist, no complications. Gave discharge instructions to the pt. and her ride using pencil inspector, both verbalized understanding and had no further questions. Pt. left with all personal belongings.
== END 2025-02-24 10:18 | disposition home or self-care (01) ==
PROVIDERS: Anesthesiology; PCP Family Medicine; Referring Provider Surgery; Visit Provider Surgery
PROC: 0FT44ZZ Resection of Gallbladder, Percutaneous Endoscopic Approach (ICD-10-PCS; CPT 47562; principal; 2025-02-24 08:00)
DX: K80.12 Calculus of gallbladder with acute and chronic cholecystitis without obstruction (principal); K82.1 Hydrops of gallbladder
CPT/HCPCS: 47562; 36415; 80053; 84703; 85025; 85610; 85730; A4217; A4649; J0131; J1100; J1885; J2371; J2704; J2710; J2765; J3010; J3490; J1596